=== PATIENT | female | born 1950 | race Caucasian/White ===

== ENCOUNTER 2021-09-29 05:35 | Outpatient (CLI) | payer MEDICARE ==
[~2021-09-29] VITALS: Ht 157 cm; Wt 83.0 kg
[2021-09-29] MEDS ORDERED: ZINC50TA58 PO (13:59)
[2021-09-29] MEDS ORDERED: SIMV10TA26 PO (13:59)
[2021-09-29] MEDS ORDERED: OMEP-401 PO (13:59)
[2021-09-29] MEDS ORDERED: LACT1CAP64 PO (13:59)
[2021-09-29] MEDS ORDERED: LEVO50CA4 PO (13:59)
[2021-09-29] MEDS ORDERED: MV-M1TAB20 PO (13:59)
[2021-09-29] MEDS ORDERED: ELDE1CAP PO (14:19)
[2021-09-29] MEDS ORDERED: CALC-308 PO (14:19)
== END 2021-09-29 14:21 | disposition home or self-care (01) ==
LOC: PREOP 05:35
PROVIDERS: ATTEND Surgery
DX: Z01.818 Encounter for other preprocedural examination (principal)

== ENCOUNTER 2021-10-06 05:55 | Observation (INO) | payer MEDICARE, OTHER ==
[2021-10-06] VITALS (15 sets, daily range): BP systolic 94–160; BP diastolic 35–95
[~2021-10-06] VITALS: Ht 157 cm; Wt 83.0 kg
[~2021-10-06 05:55] MED LIST: CALC-308 PO; ELDE1CAP PO; LACT1CAP64 PO; LEVO50CA4 PO; MV-M1TAB20 PO; OMEP-401 PO; SIMV10TA26 PO; ZINC50TA58 PO
[2021-10-06] MEDS: LACTATED RINGERS 1,000 ML IV PRN ×2 (06:34→09:01)
[2021-10-06] MEDS ORDERED: LIDOCAINE/EPI 1%-1:200,000 (XYLOCAINE) 30 ML VIAL ONE (07:11)
--- NOTE | 2021-10-06 07:36 | Progress Note-Pre Operative ---
Pre-Operative Progress Note H&P Reviewed The H&P was reviewed, patient examined and no changes noted. Date Seen by Provider: Oct 06, 2021 Time Seen by Provider: 07:36 Date H&P Reviewed: Oct 06, 2021 Time H&P Reviewed: 07:36 Pre-Operative Diagnosis: incisional hernia JHON JENKINS DO Oct 06, 2021 07:36
[2021-10-06] MEDS ORDERED: fentaNYL INJ 100 MCG/2 ML AMP ONE (07:54)
[2021-10-06] MEDS: ceFAZolin 2 GM IV Premixed 50 ML IV NR ×2 (07:54→08:48)
[2021-10-06] MEDS ORDERED: proPOfol 200 MG/20 ML (DIPRIVAN) VIAL IV ONE (09:13)
[2021-10-06] MEDS ORDERED: PHENYLEPHRINE 100 MCG/ML 10 ML (ANESTHESIA) SYR ONE (09:13)
[2021-10-06] MEDS ORDERED: GLYCOPYRROLATE 0.2 MG/ML (ROBINUL) 2 ML VIAL ONE (09:13)
[2021-10-06] MEDS ORDERED: ONDANSETRON 4 MG/2 ML (SDV) Z0FRAN ONE (09:13)
[2021-10-06] MEDS ORDERED: ROCURONIUM 50 MG/5 ML (ZEMURON) VIAL IV ONE (09:13)
[2021-10-06] MEDS ORDERED: LIDOCAINE PF 2% 5 ML (XYLOCAINE) VIAL ONE (09:13)
[2021-10-06] MEDS ORDERED: NEOSTIGMINE 3 MG/3 ML VIAL ONE (09:13)
[2021-10-06] MEDS ORDERED: SEVOFLURANE (ULTANE) 15 ML INHAL SOLN ONE (09:18)
--- NOTE | 2021-10-06 09:20 | Progress Note-Post Operative ---
Post-Operative Progess Note Surgeon (s)/Cat Swamper (s) Surgeon JHON JENKINS DO Cat Swamper: Dr. Mercado Pre-Operative Diagnosis incisional hernia Post-Operative Diagnosis same Procedure & Operative Findings Date of Procedure 10/06/21 Procedure Performed/Findings robotic incisional hernia repair Anesthesia Type general Estimated Blood Loss Estimated blood loss (mL): minimal Specimens/Packing Specimens Removed na JHON JENKINS DO Oct 06, 2021 09:20
[2021-10-06] MEDS ORDERED: ACHD5005 PO (09:21)
--- NOTE | 2021-10-06 09:22 | Discharge Inst-Simple/Standard ---
Discharge Inst-Standard Patient Instructions/Follow Up Plan of Care/Instructions/FU: 2 weeks Rowan Activity as Tolerated: No Discharge Diet: Regular Diet Other Inst to Patient Follow up Appt: Make appointment for 2 week. Instructions: No lifting greater than 10 pounds. No strenuous activity. May shower in 24 hours, no tub bath or soaking. Use incentive spirometer at home as directed. No Smoking Skin/Wound Care: You have special glue over your incision that will fall off on it's own. Symptoms to Report: Appetite Changes, Extremity Discoloration, Numbness/Tingling, Swelling Increased, Bleeding Excessive, Eyesight Changes, Pain Increased, Urine Color Change, Constipation(Persistent), Fever over 101 degree F, Pain/Pressure in chest, Urinating Difficulty, Cough Up/Vomit Blood, Heart Beat Irreg/Pounding, Pain/Pressure in jaw, Vaginal Bleeding Increase, Cramps in feet or legs, Lightheadedness, Pain/Pressure in shoulder, Diarrhea(Persistent), Memory Changes Suddenly, Questions/Concerns, Weight gain consecutive days, Dizziness/Fainting, Nausea/Vomiting, Shortness of Breath, Weight gain over 2 pounds If questions or concerns contact your physician Or seek help at emergency department. JHON JENKINS DO Oct 06, 2021 09:22
[2021-10-06] MEDS ORDERED: morphine INJ 10 MG/ML 1ML (SYR OR VIAL) IVP ONE (09:45)
[2021-10-06] MEDS ORDERED: ONDANSETRON 4 MG/2 ML (SDV) Z0FRAN IVP PRN (09:45)
[2021-10-06] MEDS ORDERED: fentaNYL INJ 100 MCG/2 ML AMP IVP ONE (09:45)
--- NOTE | 2021-10-06 10:21 | Anesthesia-General Post-Op ---
General Patient Condition Mental Status/LOC: Same as Preop Cardiovascular: Satisfactory Nausea/Vomiting: Absent Respiratory: Satisfactory Pain: Controlled Complications: Absent Post Op Complications Complications None Follow Up Care/Instructions Patient Instructions None needed. Anesthesia/Patient Condition Patient Condition Patient is doing well, no complaints, stable vital signs, no apparent adverse anesthesia problems. No complications reported per nursing. MO AMATO CRNA Oct 06, 2021 10:21
[2021-10-06] MEDS ORDERED: ESMOLOL 100 MG/10 ML (BREVIBLOC) VIAL ONE (12:18)
[2021-10-06] MEDS ORDERED: HYDROcodone/APAP 5 MG/325 MG (LORTAB) TAB PO ONE (12:45)
[2021-10-06] MEDS ORDERED: HYDROcodone/APAP 5 MG/325 MG (LORTAB) TAB ONE (12:47)
--- NOTE | 2021-10-06 13:41 | Diagnostic Imaging Report ---
INDICATION: Hypoxia. TIME OF EXAM: 01:02 p.m. COMPARISON: No prior studies are available for comparison. FINDINGS: Heart is enlarged. Right hemidiaphragm is elevated. There is central congestion but no overt failure. No infiltrates, effusion or pneumothorax is detected. IMPRESSION: Cardiomegaly and central congestion. Dictated by: Dictated on workstation # [id number]
[2021-10-06] MEDS ORDERED: ceFAZolin 2 GM IV Premixed 50 ML ONE (14:40)
[2021-10-06] MEDS: ceFAZolin 2 GM IV Premixed 50 ML IV SCH ×2 (14:43→21:46)
[2021-10-06] MEDS: dilTIAZem DRIP PRE-MIX 125 ML IV SCH (16:02)
[2021-10-06] MEDS: HYDROcodone/APAP 5 MG/325 MG (LORTAB) TAB PO PRN ×2 (17:18→22:49)
--- NOTE | 2021-10-06 17:56 | Consultation-Cardiology ---
HPI-Cardiology Cardiology Consultation Date of Consultation 10/06/21 Date of Admission Time Seen by Provider: 17:53 Indication: Atrial fibrillation HPI 71-year-old lady with history of hyperlipidemia, underwent robotic incisional hernia repair earlier today, postoperatively she went to atrial fibrillation with rapid ventricular response, felt some flushing and discomfort in her head, reporting that she had few episodes similar to that in the past. No chest pain, no syncope. Her brother has history of stroke. No previous cardiac history Home Medications & Allergies Allergies: Coded Allergies: No Known Drug Allergies (Unverified , 09/29/21) Home Medication List Reviewed: Yes POS-[id number] Hx Patient Social History Recreational Drug Use: No Smoking Status: Never a Smoker Recent Hopitalizations: No Alcohol Use?: No Immunizations Up To Date Date of Influenza Vaccine: Jul 06, 2021 Past Medical History Discussed below Family Medical History Family Medical Hx Brother has history of stroke Review of Systems-General Review of Systems Constitutional: no symptoms reported, see HPI, malaise EENTM: see HPI, no symptoms reported Respiratory: no symptoms reported, see HPI Cardiovascular: see HPI; No chest pain, No edema, No Hx of Intervention; palpitations; No syncope, No vascular heart diseas, No other Gastrointestinal: no symptoms reported, see HPI, abdominal pain Genitourinary: no symptoms reported, see HPI Musculoskeletal: no symptoms reported, see HPI Skin: no symptoms reported, see HPI Psychiatric/Neurological: No Symptoms Reported, See HPI Physical Exam Physical Exam Vital Signs Vital Signs - First Documented 10/06/21 06:10 Temp 36.2 Pulse 82 Resp 20 B/P (MAP) 122/74 (90) Pulse Ox 97 O2 Delivery Room Air Capillary Refill : Less Than 3 Seconds Height, Weight, BMI Height: '" Weight: lbs. oz. kg; 33.67 BMI Method: General Appearance: No Apparent Distress, WD/WN Eyes: Bilateral Eye Normal Inspection, Bilateral Eye PERRL, Bilateral Eye EOMI HEENT: PERRL/EOMI, TMs Normal, Normal ENT Inspection, Pharynx Normal, Moist Mucous Membranes Neck: Full Range of Motion, Normal Inspection, Non Tender, Supple, Carotid Bruit Respiratory: Chest Non Tender, Normal Breath Sounds, No Accessory Muscle Use, No Respiratory Distress Cardiovascular: Regular Rate, Rhythm, No Edema, No Gallop, No JVD, No Murmur, Normal Peripheral Pulses Gastrointestinal: Normal Bowel Sounds, No Organomegaly, No Pulsatile Mass, Non Tender, Soft Back: Normal Inspection, No CVA Tenderness, No Vertebral Tenderness Extremity: Normal Capillary Refill, Normal Inspection, Normal Range of Motion, Non Tender, No Calf Tenderness, No Pedal Edema Neurologic/Psychiatric: Alert, Oriented x3, No Motor/Sensory Deficits, Normal Mood/Affect Skin: Normal Color, Warm/Dry Lymphatic: No Adenopathy A/P-Cardiology Admission Diagnosis Paroxysmal atrial fibrillation Palpitation Hyperlipidemia Incisional hernia Assessment/Plan Paroxysmal atrial fibrillation with rapid ventricular response, had episode of atrial fibrillation postoperatively. There is questionable history of palpitation in the past. She was started on Cardizem drip due to tachycardia, converted to sinus rhythm, still having multiple episodes of paroxysmal atrial tachycardia alternating with sinus bradycardia. I decrease the Cardizem drip to 5 mg an hour and I will add low-dose of beta-dom and evaluate tolerance and response. 2D echo was done showing normal LV size and function ejection fraction 60% no significant valvular disease. Questionable history of sleep apnea patient reporting snoring at night. Hyperlipidemia maintained on simvastatin as an outpatient Status post robotic incisional hernia repair done by Dr. Donahue today. GEN AVALOS MD Oct 06, 2021 17:56
[2021-10-06] MEDS ORDERED: meTOprolol TARTRATE 25 MG (LOPRESSOR) TABLET ONE (18:54)
[2021-10-06] MEDS: meTOprolol TARTRATE 25 MG (LOPRESSOR) TABLET PO SCH (18:57)
[2021-10-06] MEDS: RT-ALBUTEROL SULF 2.5 MG/3 ML PRE-MIX VIAL INH SCH (19:47)
--- NOTE | 2021-10-07 00:47 | OPERATIVE REPORT ---
DATE OF SERVICE: 10/06/2021 PREOPERATIVE DIAGNOSIS: Incisional hernia. POSTOPERATIVE DIAGNOSIS: Incisional hernia. PROCEDURE: Robotic incisional hernia repair. SURGEON: Jhon Donahue DO BOTTLE BLOWING MACHINE TENDER: Dr. Mercado, assisted in retraction, dissection and closure. ANESTHESIA: General. ESTIMATED BLOOD LOSS: Minimal. COMPLICATIONS: None. INDICATIONS: The patient is a 71-year-old female with incisional hernia. She understands risks and benefits of procedure, wishes to proceed. Consent was signed in the chart. DESCRIPTION OF PROCEDURE: The patient was taken to the operating suite. She was prepped and draped in sterile fashion. Timeout was performed. A 12 mm incision was made in the left upper quadrant. Cautery was used to dissect down through the subcutaneous fat to the fascia, which was then scored divided. The muscle was divided and the abdomen was then entered, a balloon trocar was inserted. Under direct visualization with laparoscope, a trocar was placed in the left lateral aspect along the left lower quadrant. The robot was moved into position and instrumentation was inserted. The defect was at the midline. Using a 0 V-Loc, the defect was then closed in a running fashion. The 4-1/2 inch Echo Ventralight mesh was inserted. It was grasped with a Wayne-Marguerite through a small stab incision at the incisional site, brought up. This was then secured using 2-0 Vicryl absorbable V-Loc. Once circumferentially secured, the balloon was taken down and removed. The suture needles were then cut and removed. Adequate coverage was then placed. No other pathology was noted within the abdomen. The abdomen was then desufflated, the trocars were removed. The fascial defect in the left upper quadrant was then closed using 0 Vicryl. Skin was then closed using 4-0 Monocryl in a subcuticular fashion. The abdomen was then washed and dried and Skin Affix was placed over the incisions. The patient tolerated the procedure well without any complications. She was taken to recovery room in stable condition. CC: Dr. House - requested, unable to deliver. Job ID: [id number] DocumentID: [id number] Dictated Date: 10/06/2021 14:03:39 Desolderer Date: 10/06/2021 19:23:35 Dictated By: JHON DONAHUE DO
[2021-10-07] MEDS: dilTIAZem DRIP PRE-MIX 125 ML IV SCH (03:32)
[2021-10-07 04:53] LABS: HEMATOCRIT 40 % (35-52); HEMOGLOBIN 12.9 g/dL (11.5-16.0); MEAN CORPUSCULAR HEMOGLOBIN 30 pg (25-34); MEAN CORPUSCULAR HGB CONC 33 g/dL (32-36); MEAN CORPUSCULAR VOLUME 92 fL (80-99); MEAN PLATELET VOLUME 10.5 fL (9.0-12.2); PLATELET COUNT 204 10^3/uL (130-400); WHITE BLOOD COUNT 10.3 10^3/uL (4.3-11.0)
[2021-10-07 05:26] LABS: ALBUMIN 3.6 GM/DL (3.2-4.5); POTASSIUM 4.2 MMOL/L (3.6-5.0)
[2021-10-07 05:27] LABS: CALCIUM 8.6 MG/DL (8.5-10.1)
[2021-10-07 05:28] LABS: TOTAL PROTEIN 6.2 GM/DL (6.4-8.2)
[2021-10-07 05:30] LABS: BILIRUBIN,TOTAL 0.6 MG/DL (0.1-1.0)
[2021-10-07 05:32] LABS: CREATININE SERUM 0.87 MG/DL (0.60-1.30)
[2021-10-07] MEDS: HYDROcodone/APAP 5 MG/325 MG (LORTAB) TAB PO PRN ×2 (06:14→13:57)
[2021-10-07] MEDS: RT-ALBUTEROL SULF 2.5 MG/3 ML PRE-MIX VIAL INH SCH (07:30)
--- NOTE | 2021-10-07 08:30 | Progress Note - Surgery ---
AKASH HANSEN 10/07/21 0830: Subjective Date Seen by a Provider: Oct 07, 2021 Subjective/Events-last exam María Zimmer is a 71 yo female with a history of HLD who presents for evaluation and management of hypoxemia and A-fib with RVR s/p robotic incisional hernia repair. María is sitting supine in bed, is awake, pleasanr, and conversational. She states that she is feeling better, and that her pain is well-controlled. She denies any SOB, chest pain, nausea or vomiting. Reports that she has a productive cough, that has been intermittent. She states that she is using ICS as much as she can remember. Incisions are clean, dry, and intact. Review of Systems General: Fatigue, Malaise HEENT: No Eye Pain, No Ear Pain Pulmonary: No Dyspnea; Cough Cardiovascular: No: Chest Pain, Palpitations Gastrointestinal: Abdominal Pain; No: Nausea, Vomiting Genitourinary: No Dysuria, No Frequency Musculoskeletal: No: neck pain, shoulder pain Neurological: No: Weakness, Numbness Focused Exam Respiratory: Chest Non Tender, Normal Breath Sounds, No Accessory Muscle Use, No Respiratory Distress Cardiovascular: Regular Rate, Rhythm, No Edema Capillary Refill: Less Than 3 Seconds Peripheral Pulses: 2+ Radial Pulses (R), 2+ Radial Pulses (L) Skin: normal color, warm/dry Objective Exam Vital Signs Date Time Temp Pulse Resp B/P (MAP) Pulse Ox O2 Delivery O2 Flow Rate FiO2 10/07/21 08:00 57 20 115/55 93 Nasal Cannula 2.00 10/07/21 07:00 58 15 103/52 95 Nasal Cannula 2.00 10/07/21 07:00 50 10/07/21 06:00 76 20 109/63 95 Nasal Cannula 2.00 10/07/21 05:00 70 19 112/65 96 Nasal Cannula 2.00 10/07/21 04:00 52 19 108/60 96 Nasal Cannula 2.00 10/07/21 03:00 53 17 106/61 95 Nasal Cannula 2.00 10/07/21 02:00 51 18 112/63 95 Nasal Cannula 2.00 10/07/21 01:00 61 18 116/56 95 Nasal Cannula 2.00 10/07/21 01:00 50 10/07/21 00:00 61 18 119/67 96 Nasal Cannula 2.00 10/07/21 00:00 37.0 61 15 109/60 95 Nasal Cannula 2.00 10/06/21 23:00 57 15 119/64 99 Nasal Cannula 2.00 10/06/21 22:00 63 21 114/65 95 Nasal Cannula 2.00 10/06/21 21:00 64 20 111/62 95 Nasal Cannula 2.00 10/06/21 20:20 37.3 61 22 120/70 91 10/06/21 20:00 Nasal Cannula 2.00 10/06/21 20:00 75 18 114/60 94 Nasal Cannula 2.00 10/06/21 19:47 93 Nasal Cannula 2.00 10/06/21 19:00 73 23 119/63 91 Nasal Cannula 2.00 10/06/21 19:00 82 10/06/21 18:45 78 18 121/68 93 Nasal Cannula 2.00 10/06/21 18:30 64 21 126/70 92 Nasal Cannula 2.00 10/06/21 18:15 84 20 121/71 92 Nasal Cannula 2.00 10/06/21 18:00 80 20 118/71 93 Nasal Cannula 2.00 10/06/21 17:45 82 20 129/69 94 Nasal Cannula 2.00 10/06/21 17:30 87 16 132/74 93 Nasal Cannula 2.00 10/06/21 17:15 86 18 132/61 92 Nasal Cannula 2.00 10/06/21 17:00 86 17 125/71 93 Nasal Cannula 2.00 10/06/21 16:45 84 16 126/59 93 Nasal Cannula 2.00 10/06/21 16:30 92 34 114/65 93 Nasal Cannula 2.00 10/06/21 16:23 87 10/06/21 16:15 107 25 129/69 93 Nasal Cannula 2.00 10/06/21 16:01 147 17 109/78 95 Nasal Cannula 2.00 10/06/21 16:00 141 20 124/100 94 Nasal Cannula 2.00 10/06/21 15:56 36.6 154 94 10/06/21 15:27 154 10/06/21 15:15 Nasal Cannula 2.00 10/06/21 15:10 83 20 124/60 94 Nasal Cannula 2.00 10/06/21 15:00 36.6 97 16 138/83 94 2.00 10/06/21 12:30 97 16 138/83 94 Simple Mask 1.00 10/06/21 12:00 70 18 107/81 91 Simple Mask 2.00 10/06/21 11:30 36.6 84 20 137/69 92 Simple Mask 3.00 10/06/21 11:00 35.9 84 16 130/81 92 Simple Mask 4.00 10/06/21 10:30 36.1 107 16 146/95 91 Simple Mask 4.00 10/06/21 10:21 37 26 152/80 (104) 94 OxyMask 3 10/06/21 10:18 OxyMask 3 10/06/21 10:10 15 94/78 (83) 89 OxyMask 2 10/06/21 10:08 OxyMask 3 10/06/21 10:00 15 139/93 (108) 93 OxyMask 3 10/06/21 09:55 OxyMask 3 10/06/21 09:50 13 149/81 (103) 95 OxyMask 3 10/06/21 09:40 21 160/88 (112) 94 OxyMask 8 10/06/21 09:40 OxyMask 8 10/06/21 09:30 17 150/35 (73) 94 OxyMask 8 10/06/21 09:25 36.2 20 143/86 (105) 94 OxyMask 8 10/06/21 09:25 OxyMask 8 I & O 10/07/21 07:00 Intake Total 2235 ml Output Total 400 ml Balance 1835 ml Capillary Refill : Less Than 3 Seconds General Appearance: No Apparent Distress, WD/WN HEENT: PERRL/EOMI, TMs Normal, Normal ENT Inspection, Pharynx Normal, Moist Mucous Membranes Neck: Full Range of Motion, Normal Inspection, Non Tender, Supple, Carotid Bruit Respiratory: Chest Non Tender, Normal Breath Sounds, No Accessory Muscle Use, No Respiratory Distress Cardiovascular: Regular Rate, Rhythm, No Edema, No Gallop, No JVD, No Murmur, Normal Peripheral Pulses Peripheral Pulses: 2+ Radial Pulses (R), 2+ Radial Pulses (L) Extremity: Normal Capillary Refill, Normal Inspection, Normal Range of Motion, Non Tender, No Calf Tenderness, No Pedal Edema Neurologic/Psychiatric: Alert, Oriented x3, No Motor/Sensory Deficits, Normal Mood/Affect Skin: Normal Color, Warm/Dry Lymphatic: No Adenopathy Results Lab Laboratory Tests 10/07/21 03:48: White Blood Count 10.3, Red Blood Count 4.32, Hemoglobin 12.9, Hematocrit 40, Mean Corpuscular Volume 92, Mean Corpuscular Hemoglobin 30, Mean Corpuscular Hemoglobin Concent 33, Red Cell Distribution Width 13.4, Platelet Count 204, Mean Platelet Volume 10.5, Sodium Level 133L, Potassium Level 4.2, Chloride Level 102, Carbon Dioxide Level 21, Anion Gap 10, Blood Urea Nitrogen 13, Creatinine 0.87, Estimat Glomerular Filtration Rate 71, BUN/Creatinine Ratio 15, Glucose Level 110H, Calcium Level 8.6, Corrected Calcium 8.9, Total Bilirubin 0.6, Aspartate Amino Transf (AST/SGOT) 20, Alanine Aminotransferase (ALT/SGPT) 16, Alkaline Phosphatase 65, Total Protein 6.2L, Albumin 3.6, Triglycerides Level 75, Cholesterol Level 152, LDL Cholesterol Direct 83, VLDL Cholesterol 15, HDL Cholesterol 54, Thyroid Stimulating Hormone (TSH) 0.67 Microbiology 10/06/21 MRSA Screen - Final, Complete MRSA not isolated Meds Item Value Date Time Metoprolol 25 mg 10/06/21 2100 Tartrate BID/PO 10/06/21 1857 (Lopressor Tablet) Albuterol Sulfate 2.5 mg 10/06/21 2100 (Proventil RTBID/INH 10/06/21 1947 Pre-Mix Nebs (Rt)) Diltiazem HCl 125 ml @ 10 mls/hr 10/06/21 1600 Acetaminophen/ 1 ea 10/06/21 1300 Hydrocodone Bitart Q4H PRN/PO 10/07/21 0614 (Lortab 5 Mg Tablet) Ondansetron HCl 4 mg 10/06/21 0945 (Zofran Q10M PRN/IVP Injection (Sdv)) Lactated Ringer's 1,000 ml @ 0 mls/hr 10/06/21 0615 Assessment/Plan Assessment/Plan Assessment/Plan 1. A-fib with RVR 2. Post-op hypoxia 3. Incisional hernia repair Presently on diltiazem and metoprolol Continue supplemental oxygen Continue pain management ICS use encouraged JHON DONAHUE DO 10/07/21 1409: Subjective Time Seen by a Provider: 11:00 Subjective/Events-last exam Patient pain controlled. Tolerating diet. Using IS some. In regular rhythm. o2 saturation improved. Reports snoring at home when sleeping. Denies n/v fever sweats chills shortness of breath or chest pain. Objective Exam General Appearance: No Apparent Distress, WD/WN HEENT: PERRL/EOMI, Normal ENT Inspection Neck: Normal Inspection, Non Tender Respiratory: Chest Non Tender, No Accessory Muscle Use, No Respiratory Distress Cardiovascular: Regular Rate, Rhythm, No JVD Gastrointestinal: soft, other (incisions c/d/i) Neurologic/Psychiatric: Alert, Oriented x3 Skin: Normal Color, Warm/Dry Lymphatic: No Adenopathy Assessment/Plan Assessment/Plan Assessment/Plan s/p robotic incisional hernia repair afib c rvr- in sinus rhythm postop hypoxia likely related to JOHN wean O2 and likely dc home today. Final Diagnosis s/p robotic incisional hernia repair afib c rvr- in sinus rhythm postop hypoxia likely related to JOHN Supervisory-Addendum Brief Verification & Attestation Participated in pt care: history, MDM, physical Personally performed: exam, history, MDM, supervision of care Care discussed with: Medical Student Procedures: n/a Results interpretation: Verified all documentation Verification and Attestation of Medical Student E/M Service A medical student performed and documented this service in my presence. I r eviewed and verified all information documented by the medical student and made modifications to such information, when appropriate. I personally performed the physical exam and medical decision making. Jhon Donahue, Oct 07, 2021,14:09 AKASH HANSEN Oct 07, 2021 08:30 JHON DONAHUE DO Oct 07, 2021 14:09
[2021-10-07] MEDS: meTOprolol TARTRATE 25 MG (LOPRESSOR) TABLET PO SCH (09:53)
--- NOTE | 2021-10-07 11:53 | Cardiology Progress Note ---
Subjective Date Seen by Provider: Oct 07, 2021 Time Seen by Provider: 11:51 Subjective/Events-last exam Patient was seen at bedside, laying down comfortably, in sinus rhythm with no new complaints. No further arrhythmia was noted Review of Systems General: No Chills, No Night Sweats, No Fatigue, No Malaise, No Appetite, No Other HEENT: No Head Aches, No Visual Changes, No Eye Pain, No Ear Pain, No Dysphasia, No Sinus Congestion, No Post Nasal Drip, No Sore Throat, No Other Pulmonary: No Dyspnea, No Cough, No Pleuritic Chest Pain, No Other Cardiovascular: No: Chest Pain, Palpitations, Orthopnea, Paroxysmal Noc. Dyspne a, Edema, Lt Headedness, Other Objective-Cardiology Exam Last Set of Vital Signs Vital Signs 10/07/21 10/07/21 00:00 10:00 Temp 37.0 Pulse 56 Resp 19 B/P (MAP) 124/73 Pulse Ox 96 O2 Delivery Nasal Cannula O2 Flow Rate 2.00 I&O Intake and Output 10/07/21 00:00 Intake Total 2035 ml Output Total 400 ml Balance 1635 ml Intake Oral 985 ml IV Total 1050 ml Output Urine Total 400 ml # Voids 2 Daily Weight Change No General: Alert, Oriented X3, Cooperative HEENT: Atraumatic, PERRLA Neck: Supple, No JVD, No Thyromegaly Lungs: Clear to Auscultation, Normal Air Movement Heart: Regular Rate, Normal S1, Normal S2, No Murmurs Abdomen: Normal Bowel Sounds, Soft, No Tenderness, No Hepatosplenomegaly, No Ma sses Extremities: No Clubbing, No Cyanosis, No Edema, Normal Pulses, No Tender ness/Swelling Skin: No Rashes, No Breakdown, No Significant Lesion Neuro: Normal Gait, Normal Speech, Strength at 5/5 X4 Ext, Normal Tone, Sensation Intact Psych/Mental Status: Mental Status NL, Mood NL Results Lab Laboratory Tests 10/07/21 03:48 A/P-Cardiology Admission Diagnosis Paroxysmal atrial fibrillation Palpitation Hyperlipidemia Incisional hernia Assessment/Plan Paroxysmal atrial fibrillation with rapid ventricular response, had episode of atrial fibrillation postoperatively. There is questionable history of palpitation in the past. She was started on Cardizem drip due to tachycardia, converted to sinus rhythm. Still in sinus rhythm today. Okay for discharge and arrange for follow-up as an outpatient Questionable underlying sleep apnea, recommend sleep study as an outpatient [id number] score of 1 with age, recommend aspirin at this point, may need to progress to oral anticoagulation if further episode of atrial fibrillation was noted 2D echo was done showing normal LV size and function ejection fraction 60% no significant valvular disease. Questionable history of sleep apnea patient reporting snoring at night. Hyperlipidemia maintained on simvastatin as an outpatient Status post robotic incisional hernia repair done by Dr. Donahue today. GEN AVALOS MD Oct 07, 2021 11:53
[2021-10-07 14:22] VITALS: BP 105/55
--- NOTE | 2021-10-07 14:42 | Anesthesia-General Post-Op ---
General Patient Condition Mental Status/LOC: Same as Preop Cardiovascular: Satisfactory Nausea/Vomiting: Absent Respiratory: Satisfactory Pain: Controlled Complications: Absent Post Op Complications Complications None Follow Up Care/Instructions Patient Instructions None needed. Anesthesia/Patient Condition Patient Condition Patient is better today. She is sitting up in the chair on room air, back in sinus rhythm and hoping to be D/C to home today. JACKIE HAMILTON DO Oct 07, 2021 14:42
--- NOTE | 2021-10-07 16:38 | Consultation - Hospitalist ---
HPI History of Present Illness: HPI/Chief Complaint María Zimmer is a 71 year old female who presented for hernia repair. She underwent robotic incisional hernia repair 10/06. Post-operatively she was found to be in atrial fibrillation with rapid ventricular response. She denies chest pain and palpitations. She denies shortness of breath. She has no other complaints or concerns. Source: patient Exam Limitations: no limitations Date Seen 10/07/21 Attending Physician Harry Donahue DO PCP Aurelio House DO Referring Physician Date of Admission Oct 06, 2021 at 15:29 Home Medications & Allergies Home Medications Reviewed patient Home Medication Reconciliation performed by pharmacy medication reconciliations automotive engineering technician and/or nursing. Patients Allergies have been reviewed. Allergies Allergies Coded Allergies No Known Drug Allergies (Unverified09/29/21) Past Eqlnsve-Ppwtvm-Ctluwb Hx Patient Social History Tobacco Use?: No Smoking Status: Never a Smoker Alcohol Use?: No Immunizations Up To Date Date of Influenza Vaccine: Jul 06, 2021 First/Initial COVID19 Vaccinat: OCT 2020 Second COVID19 Vaccination Daniel: OCT 2020 Seasonal Allergies Seasonal Allergies: Yes Past Medical History Surgeries: Gallbladder, Parathyroidectomy, Tonsillectomy Currently Using CPAP: No Currently Using BIPAP: No High Cholesterol Arthritis Psoriasis Blood Disorders: No Family Medical History No Pertinent Family Hx Review of Systems Constitutional: no symptoms reported EENTM: no symptoms reported Respiratory: no symptoms reported Cardiovascular: no symptoms reported Gastrointestinal: no symptoms reported Genitourinary: no symptoms reported Musculoskeletal: no symptoms reported Skin: no symptoms reported Psychiatric/Neurological: No Symptoms Reported Physical Exam Physical Exam Vital Signs Vital Signs - First Documented 10/06/21 06:10 Temp 36.2 Pulse 82 Resp 20 B/P (MAP) 122/74 (90) Pulse Ox 97 O2 Delivery Room Air Capillary Refill : Less Than 3 SecondsLess Than 3 Seconds Height, Weight, BMI Height: '" Weight: lbs. oz. kg; 33.67 BMI Method: General Appearance: No Apparent Distress, WD/WN Eyes: Bilateral Eye Normal Inspection, Bilateral Eye PERRL, Bilateral Eye EOMI HEENT: PERRL/EOMI, Pharynx Normal Neck: Normal Inspection, Supple Respiratory: Lungs Clear, Normal Breath Sounds, No Respiratory Distress Cardiovascular: Regular Rate, Rhythm, No Murmur Gastrointestinal: Normal Bowel Sounds, No Organomegaly, No Pulsatile Mass, Non Tender, Soft Extremity: Normal Inspection, Non Tender, No Pedal Edema Neurologic/Psychiatric: Alert, Oriented x3, No Motor/Sensory Deficits, Normal Mood/Affect Skin: Normal Color, Warm/Dry Results Results/Procedures Labs Laboratory Tests 10/07/21 03:48 Patient resulted labs reviewed. Assessment/Plan Assessment and Plan Assess & Plan/Chief Complaint Paroxysmal atrial fibrillation with rapid ventricular response Started on IV Cardizem, now off RVR resolved Converted to normal sinus rhythm Cardiology consulted Low stroke risk, anticoagulation not recommended Aspirin Incisional hernia s/p robotic repair 10/06 Dr. Donahue primary Diagnosis/Problems Diagnosis/Problems (1) New onset a-fib Status: Acute (2) Paroxysmal atrial fibrillation with RVR Status: Acute (3) Hernia Status: Acute ROCK NEIL MD Oct 07, 2021 16:38
== END 2021-10-07 16:10 | disposition home or self-care (01) ==
LOC: SDC 05:55 → CSD 15:29
PROVIDERS: ADMIT Surgery; ATTEND Surgery
DX: I48.20 Chronic atrial fibrillation, unspecified (principal); I48.0 Paroxysmal atrial fibrillation; K43.2 Incisional hernia without obstruction or gangrene; I34.0 Nonrheumatic mitral (valve) insufficiency; K21.9 Gastro-esophageal reflux disease without esophagitis; E07.9 Disorder of thyroid, unspecified; R03.0 Elevated blood-pressure reading, without diagnosis of hypertension; E78.5 Hyperlipidemia, unspecified; E78.00 Pure hypercholesterolemia, unspecified; M19.90 Unspecified osteoarthritis, unspecified site; Z79.899 Other long term (current) drug therapy; Z79.890 Hormone replacement therapy; Z90.49 Acquired absence of other specified parts of digestive tract; Z79.82 Long term (current) use of aspirin
CPT/HCPCS: 49654; 71045; 80053; 80061; 84443; 85027; 87081; 93005; 93306; 94640 ×2; 94664; C1781; 36415

== ENCOUNTER → 2021-11-16 | Outpatient (CLI) | payer MEDICARE ==
[~2021-11-16] MED LIST changes: +ACHD5005 PO; +CATHETER FLUSH 10 ML SYR IVP PRN; +REGADENOSON 0.4 MG/5 ML SYR (LEXISCAN) IV ONE
[2021-11-16 09:08] VITALS: BP 122/63
--- NOTE | 2021-11-16 12:05 | Cardiology Stress Test Report ---
Stress Test Report Date of Procedure/Referring: Date of Procedure: Nov 16, 2021 PCP Gen Piper MD Admitting Physician Aurelio House DO Indications: HTN Baseline Heart Rate: 57 Baseline Blood Pressure: Blood Pressure Systolic: 122 Blood Pressure Diastolic: 63 Baseline Vitals Vital Signs Date Time Temp Pulse Resp B/P (MAP) Pulse Ox O2 Delivery O2 Flow Rate FiO2 11/16/21 09:08 88 122/63 (82) Baseline EKG: Baseline EKG: NSR Summary After explaining the procedure to the patient, she signed a consent and then brought to the stress nuclear laboratory. Patient received 0.4 mg Lexiscan for stress test, ECG, heart rate and blood pressure were monitored continuously. Resting and stress dose of radio tracer were injected, imaging was acquired and reviewed in short axis, horizontal long axis and vertical long axis views. TID: 1.38 SSS: 3 SDS: 3 EF: 66 1. Patient tolerated Lexiscan well 2. Breast attenuation with mild decrease uptake at the apex with mild reversibility 3. Transient ischemic dilatation of 1.38 4. Normal left ventricular size, EF 66% GEN PIPER MD Nov 16, 2021 12:05
== END ==
PROVIDERS: ATTEND Internal Medicine Cardiovascular Disease
DX: I10 Essential (primary) hypertension (principal); I25.10 Atherosclerotic heart disease of native coronary artery without angina pectoris
CPT/HCPCS: 78452; 93017; A9502

== ENCOUNTER 2021-11-30 10:00 | Day surgery (SDC) | payer MEDICARE ==
[2021-11-30] VITALS (10 sets, daily range): BP systolic 92–119; BP diastolic 54–66
[~2021-11-30] VITALS: Ht 157.5 cm; Wt 86.9 kg
[2021-11-30 08:16] LABS: HEMATOCRIT 46 % (35-52); HEMOGLOBIN 14.7 g/dL (11.5-16.0); MEAN CORPUSCULAR HEMOGLOBIN 30 pg (25-34); MEAN CORPUSCULAR HGB CONC 32 g/dL (32-36); MEAN CORPUSCULAR VOLUME 92 fL (80-99); PLATELET COUNT 243 10^3/uL (130-400); WHITE BLOOD COUNT 6.7 10^3/uL (4.3-11.0)
--- NOTE | 2021-11-30 08:16 | Diagnostic Imaging Report ---
INDICATION: Coronary artery disease, preop for angiography COMPARISON: 10/06/2021 FINDINGS: Single view of the chest demonstrates cardiac enlargement with slight central vascular congestion. There is dependent atelectasis. There is no pneumothorax. There is small left-sided effusion. Osseous structures are normal. IMPRESSION: Cardiac enlargement with central vascular congestion and left-sided pleural effusion Dictated by: Dictated on workstation # [id number]
[2021-11-30 08:17] LABS: BILIRUBIN,URINE NEGATIVE (NEGATIVE); CLARITY,URINE CLEAR; COLOR,URINE YELLOW; GLUCOSE, URINE (UA) NEGATIVE (NEGATIVE); KETONES,URINE NEGATIVE (NEGATIVE); LEUKOCYTE ESTERASE ,URINE NEGATIVE (NEGATIVE); NITRITE,URINE NEGATIVE (NEGATIVE); PH,URINE 5.5 (5-9); PROTEIN,URINE NEGATIVE (NEGATIVE)
[2021-11-30 08:32] LABS: INR 0.9 (0.8-1.4); PROTHROMBIN TIME PATIENT 12.9 SEC (12.2-14.7)
[2021-11-30 08:41] LABS: ALBUMIN 4.1 GM/DL (3.2-4.5); BILIRUBIN,TOTAL 0.5 MG/DL (0.1-1.0); CALCIUM 9.4 MG/DL (8.5-10.1); CREATININE SERUM 0.97 MG/DL (0.60-1.30); POTASSIUM 3.8 MMOL/L (3.6-5.0); TOTAL PROTEIN 7.2 GM/DL (6.4-8.2)
[2021-11-30 08:50] LABS: BACTERIA,URINE FEW /HPF
[2021-11-30 08:51] LABS: HYALINE CASTS, URINE RARE /LPF
--- NOTE | 2021-11-30 09:44 | Conscious Sedation/ASA ---
Conscious Sedation Pre-Proced Time 09:44 ASA Score 3 For ASA 3 and 4: Consider anesthesia and medical clearance. Also, for patients with a history of failed moderate sedation consider anesthesia. Airway Lungs Heart ASA score ASA 1: a normal healthy patient ASA 2: a patient with a mild systemic disease (mid diabetes, controlled hypertension, obesity x ASA 3: a patient with a severe systemic disease that limits activity (angina, COPD, prior Myocardial infarction) ASA 4: a patient with an incapacitating disease that is a constant threat to life (CHF, renal failure) ASA 5: a moribund patient not expected to survive 24 hrs. (ruptured aneurysm) ASA 6: a declared brain- patient whose organs are being harvested. For emergent operations, add the letter E after the classification Mallampati Classification Grade 3 Sedation Plan Analgesia, Amnesia, Plan communicated to team members, Discussed options with patient/fam, Discussed risks with patient/fam The patient is an appropriate candidate to undergo the planned procedure, sedation, and anesthesia. The patient immediately re-assessed prior to indication. GEN AVALOS MD Nov 30, 2021 09:44
[~2021-11-30 10:00] MED LIST changes: -CATHETER FLUSH 10 ML SYR IVP PRN; +CLOB15CR3 TP; +HEParin (CATH LAB) 2,000 ML IV ONE; +HEParin 1000 UNIT/ML (10ML VIAL) FOR BOLUS ONE; +LIDOCAINE 1% INJ 50 ML (XYLOCAINE) VIAL ONE; +MIDAZOLAM 5 MG/5 ML (VERSED) VIAL ONE; +MTP25TSR PO; +MULT400T5 PO; +NITRO DRIP 25000 MCG/D5W 250 ML IV ONE; +NS IV 1000 ML 1,000 ML IV SCH; +NS IV 1000 ML 1,000 ML ONE; -REGADENOSON 0.4 MG/5 ML SYR (LEXISCAN) IV ONE; +RIVA20TA PO; +VERAPAMIL 5 MG/2 ML (CALAN) VIAL IV ONE; +fentaNYL INJ 100 MCG/2 ML AMP ONE
--- NOTE | 2021-11-30 10:14 | Discharge Inst-Post CATH ---
Discharge Inst-CATH/EP Problems Reviewed?: Yes Post Cardiac Cath/EP D/C Inst Follow Up/Plan Appointment with Dr. Piper's office in 4 weeks <b>CARDIAC CATH/EP PROCEDURE DISCHARGE INSTRUCTIONS</b> ACTIVITY * Go Home directly and rest. * Limit activity of the leg (or wrist if it was used) for 7 days including aerobics, swimming, jogging, bicycling, etc. * Restrict stair-climbing for 7 days if possible, if not, climb up with your non-cath leg, then bring together on the same step. * Avoid lifting, pushing, pulling or excessive movement of the affected extremity for 7 days. * Customary sexual activity may be resumed after 2 days-use caution not to use a position that strains or causes pain to the affected extremity. * No driving for 24 hours. * NO SMOKING. * Avoid straining for bowel movements for 7 days. * Gentle walking on level ground is allowed. * Returning to work will depend on the type of procedure and the results. Your doctor will discuss this with you. CALL YOUR DOCTOR FOR ANY OF THE FOLLOWING: *If bleeding from the puncture site occurs- Apply gentle pressure to site with clean cloth and call your doctor or EMS. * If a knot or lump forms under the skin, increases in size, or causes pain. * If bruising appears to be worsening or moving further down your leg instead of disappearing. * Temperature above 101 F. CARE OF YOUR GROIN INCISION; * Bruising or purple discoloration of the skin near the puncture site is common. * You may shower only, no bathtub bathing for 5 days. Be careful to avoid slipping as your leg may feel stiff. * If a closure device was used on your femoral artery, please see the attached guide regarding care of the device and your leg. * Leave dressing on FOR 24 hours. CARE OF YOUR WRIST INCISION; * Bruising or purple discoloration of the skin near the puncture site is common. * You may shower. * DO NOT submerge wrist. * Leave dressing on FOR 24 hours. GEN PIPER MD Nov 30, 2021 10:14
[2021-11-30] MEDS ORDERED: NS IV 1000 ML 1,000 ML IV SCH (10:15)
--- NOTE | 2021-11-30 10:18 | Cardiac Cath Report ---
Cardiac Cath Report Physician (s)/Children Teacher (s) Physician GEN AVALOS MD Pre-Procedure Diagnosis Pre-Procedure Diagnosis: Coronary artery disease Post-Procedure Note Procedure Start Date: Nov 30, 2021 Name of Procedure: Left heart catheterization Findings/Procedure Note PROCEDURE NOTE: 71-year-old lady with history of paroxysmal atrial fibrillation, had mildly abnormal stress test, scheduled for cardiac catheterization possible PTCA. After explaining the procedure to the patient, all pros and cons were explained, all questions were answered. The patient signed the consent and then she was placed on the cardiac catheterization laboratory. Groin was prepped SL fashion local anesthesia was used. Sheath placed in the right radial artery, [place] catheter was advanced to the left ventricular cavity, pressure was measured, pullback LV to aorta was done, engaged the right and left coronary system, angiogram was done. At the end of the procedure the sheath was removed. Vascular band was used FINDINGS: Hemodynamics LV 104/18, end-diastolic pressure of 18 Aorta 106/64 mean of 76 ANATOMY: Left Main is free of obstructive disease Left Anterior Descending has mild disease at the midportion, slow flow distally due to small vessel disease nonobstructive disease Left Circumflex has mild disease nonobstructive disease Right Coronary Artery has mild disease nonobstructive disease LV Gram was not done, pressure was measured CONCLUSION: 1. Mild coronary artery disease nonobstructive disease 2. Mildly elevated left ventricular end-diastolic pressure DISCUSSION AND RECOMMENDATION: Continue on current treatment, there is no contraindication to the use of class Ic antiarrhythmic medications Anesthesia Type: Conscious Sedation Estimated blood loss (mL): 10 ml Contrast Amount: 22 ml Total Radiation Dose: 234 mGy Post-Procedure Diagnosis Post-operative diagnosis: Coronary artery disease Paroxysmal atrial fibrillation Hypertension Palpitation GEN AVALOS MD Nov 30, 2021 10:17
== END 2021-11-30 13:23 | disposition home or self-care (01) ==
LOC: CATH 10:00 → SDC 10:31 → CATH 13:23
PROVIDERS: ATTEND Internal Medicine Cardiovascular Disease
DX: I25.10 Atherosclerotic heart disease of native coronary artery without angina pectoris (principal); I48.0 Paroxysmal atrial fibrillation; I10 Essential (primary) hypertension; R00.2 Palpitations; Z79.01 Long term (current) use of anticoagulants; Z79.899 Other long term (current) drug therapy; E78.5 Hyperlipidemia, unspecified; R82.90 Unspecified abnormal findings in urine
CPT/HCPCS: 71045; 80053; 80061; 81000; 85027; 85610; 85730; 87081; 87088; 93005; 93458; C1894; 36415

== ENCOUNTER 2022-04-26 09:48 | Outpatient (CLI) | payer MEDICARE ==
[~2022-04-26 09:48] MED LIST changes: -HEParin (CATH LAB) 2,000 ML IV ONE; -HEParin 1000 UNIT/ML (10ML VIAL) FOR BOLUS ONE; -LIDOCAINE 1% INJ 50 ML (XYLOCAINE) VIAL ONE; -MIDAZOLAM 5 MG/5 ML (VERSED) VIAL ONE; -NITRO DRIP 25000 MCG/D5W 250 ML IV ONE; -NS IV 1000 ML 1,000 ML IV SCH; -NS IV 1000 ML 1,000 ML ONE; -VERAPAMIL 5 MG/2 ML (CALAN) VIAL IV ONE; -fentaNYL INJ 100 MCG/2 ML AMP ONE
== END 2022-04-26 10:08 ==
LOC: SLEEP 09:48
PROVIDERS: ATTEND Internal Medicine Cardiovascular Disease
DX: G47.33 Obstructive sleep apnea (adult) (pediatric) (principal); I49.9 Cardiac arrhythmia, unspecified; I10 Essential (primary) hypertension; I48.91 Unspecified atrial fibrillation
CPT/HCPCS: G0399